=== PATIENT | female | born 1935 | race Caucasian/White ===

== ENCOUNTER 2021-01-19 15:27 | Emergency (ER) | payer MEDICARE, BC ==
--- NOTE | 2021-01-19 17:18 | EDM.PDOC ---
<Bc Mckeon - Last Filed: 01/19/21 17:13> ED HPI GENERAL MEDICAL PROBLEM - General Chief Complaint: Cardiovascular Problem Stated Complaint: HIGH BLOOD PRESSURE Time Seen by Provider: 01/19/21 17:05 Source of Information: Reports: Patient History Limitations: Reports: No Limitations - History of Present Illness INITIAL COMMENTS - FREE TEXT/NARRATIVE: 85 yo female was sent to the ER today by Dr. Harris for elevated BP. I asked Dr. Harris to send pertinent information from the clinic for our review, but none arrived. Patient does not know the names of her meds or dosages. She tells me she has had recent changes in her meds. She has not missed any doses of her prescribed meds to her knowledge. He has a mild frontal LUNDBERG and generally doesn't feel right. No SOB or CP or stroke sx's. 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: Other (see below) (none) - Related Data Allergies Allergy/AdvReac Type Severity Reaction Status Date / Time codeine Allergy Rash Verified 01/19/21 17:53 fosinopril [From Monopril] Allergy Cough Verified 01/19/21 17:53 Penicillins Allergy Cannot Verified 01/19/21 17:53 Remember Home Meds: Home Meds Cholecalciferol (Vitamin D3) [Vitamin D3] 1 tab PO DAILY 11/23/15 [History] Celecoxib [CeleBREX] 200 mg PO DAILY 01/19/21 [History] Furosemide [Lasix] 20 mg PO DAILY 01/19/21 [History] HCTZ/Triamterene [Maxzide 50-75 MG] 0.5 tab PO DAILY 01/19/21 [History] Levothyroxine [Synthroid] 100 mcg PO ACBREAKFAST 01/19/21 [History] Losartan [Cozaar] 100 mg PO DAILY 01/19/21 [History] amLODIPine [Norvasc] 5 mg PO DAILY #30 tab 01/19/21 [Rx] hydrALAZINE [Apresoline] 25 mg PO Q12HR #60 tab 01/19/21 [Rx] ED ROS GENERAL - Review of Systems Review Of Systems: See Below Constitutional: Reports: No Symptoms HEENT: Reports: No Symptoms Respiratory: Reports: No Symptoms Cardiovascular: Reports: Blood Pressure Problem Endocrine: Reports: No Symptoms GI/Abdominal: Reports: No Symptoms : Reports: No Symptoms Musculoskeletal: Reports: No Symptoms Skin: Reports: No Symptoms Neurological: Reports: Headache (mild, frontal) ED EXAM, GENERAL - Physical Exam Exam: See Below Exam Limited By: No Limitations General Appearance: Alert, WD/WN, No Apparent Distress Eye Exam: Bilateral Eye: Normal Inspection Ears: Normal External Exam, Normal Canal, Hearing Grossly Normal Ear Exam: Bilateral Ear: Auricle Normal, Canal Normal Nose: Normal Inspection, No Blood Throat/Mouth: Normal Inspection, Normal Lips, Normal Oropharynx, Normal Voice, No Airway Compromise Head: Atraumatic, Normocephalic Neck: Normal Inspection Respiratory/Chest: No Respiratory Distress, Lungs Clear, Normal Breath Sounds, No Accessory Muscle Use Cardiovascular: Regular Rate, Rhythm, No Edema GI/Abdominal: Soft, Non-Tender Extremities: Normal Inspection, Normal Range of Motion, Non-Tender, No Pedal Edema Neurological: Alert, Oriented, CN II-XII Intact, Normal Cognition, No Motor/Sensory Deficits Psychiatric: Normal Affect, Normal Mood Skin Exam: Warm, Dry, Intact, Normal Color, No Rash Departure - Departure Disposition: Home, Self-Care 01 Clinical Impression: Essential hypertension Prescriptions: hydrALAZINE [Apresoline] 25 mg PO Q12HR #60 tab amLODIPine [Norvasc] 5 mg PO DAILY #30 tab Instructions: Hypertension, Adult, [id number] Referrals: Mady Harris DO [Primary Care Provider] - Forms: ED Department Discharge Care Plan Goals: In addition to the your losartan, hydrochlorothiazide, and furosemide, I am adding to medications to help lower your blood pressure namely hydralazine 25 mg twice daily and amlodipine 5 mg daily. I had like you to follow-up with Dr. Harris in 1 week for a recheck of your blood pressure. <Eduardo Jimenez - Last Filed: 01/19/21 23:41> Course - Vital Signs Last Recorded V/S: Last Vital Signs Temp 36.8 C 01/19/21 17:14 Pulse 68 01/19/21 22:38 Resp 16 01/19/21 17:14 BP 166/67 H 01/19/21 22:38 Pulse Ox 99 01/19/21 17:57 - Orders/Labs/Meds Labs: Laboratory Tests 01/19/21 Range/Units 17:19 Sodium 133 L (140-148) mmol/L Potassium 4.3 (3.6-5.2) mmol/L Chloride 98 L (100-108) mmol/L Carbon Dioxide 29 (21-32) mmol/L Anion Gap 10.3 (5.0-14.0) mmol/L BUN 25 H (7-18) mg/dL Creatinine 0.9 (0.6-1.0) mg/dL Est Cr Clr Drug Dosing 34.83 mL/min Estimated GFR (MDRD) 59 L (>60) Glucose 99 (74-106) mg/dL Calcium 8.9 (8.5-10.1) mg/dL Troponin I < 0.017 (0.000-0.056) ng/mL Meds: Medications Discontinued Medications Generic Name Dose Route Start Last Admin Trade Name Freq PRN Reason Stop Dose Admin Amlodipine Besylate 10 mg 01/19/21 22:27 01/19/21 22:32 Amlodipine 5 Mg Tab PO 01/19/21 22:28 10 mg ONETIME ONE Administration Hydralazine HCl 10 mg 01/19/21 18:25 01/19/21 19:01 Hydralazine 10 Mg Tab PO 01/19/21 18:26 10 mg ONETIME STA Administration Hydralazine HCl 10 mg 01/19/21 20:45 01/19/21 20:51 Hydralazine 10 Mg Tab PO 01/19/21 20:46 10 mg ONETIME STA Administration Lorazepam 0.5 mg 01/19/21 21:20 01/19/21 21:25 Lorazepam 0.5 Mg Tab PO 01/19/21 21:21 0.5 mg ONETIME ONE Administration - Re-Assessments/Exams Free Text/Narrative Re-Assessment/Exam: 01/19/21 18:36 [Dr. Jimenez] I assumed care of the patient from Dr. Mckeon while awaiting the patient's labs to return. She has some mild hyponatremia with a sodium of 133 but otherwise are unremarkable. 01/19/21 19:30 We initiated antihypertension therapy with hydralazine 10 mg p.o. 01/19/21 21:00 patient has not had much improvement in her blood pressure still at 202/73. We will add an additional dose of hydralazine 10 mg to her regime. 01/19/21 22:15 patient is still quite hypertensive so I will add amlodipine 10 mg p.o. 01/19/21 23:15 patient's pressures are improving with the last being 170/73. I think this is a good start so we will prescribe hydralazine 25 mg twice daily and amlodipine 5 mg daily and have her review check with Dr. Harris next week for blood pressure. I am a little leery to add too many things too quickly and bottom her out. Does look like she is already on losartan, hydrochlorothiazide and furosemide. This time she is suitable for discharge home. Indications to return to the ED were discussed. Departure - Departure Time of Disposition: 23:40 Sepsis Event Note (ED) - Focused Exam Vital Signs: Vital Signs Temp Pulse Resp BP BP Pulse Ox 01/19/21 22:38 68 166/67 H 01/19/21 22:32 177/74 H 01/19/21 22:23 60 177/74 H 01/19/21 21:53 61 188/73 H 01/19/21 21:38 60 178/77 H 01/19/21 21:23 61 182/71 H 01/19/21 21:08 62 202/77 H 01/19/21 20:51 192/74 H 01/19/21 20:44 67 192/74 H 01/19/21 20:22 66 179/66 H 01/19/21 19:49 71 180/70 H 01/19/21 19:22 68 202/81 H 01/19/21 19:01 173/93 H 01/19/21 18:47 66 173/93 H 01/19/21 17:57 61 203/69 H 99 01/19/21 17:14 36.8 C 63 16 199/75 H 99 01/19/21 16:54 36.8 C 63 16 199/75 H 99 - Problem List & Annotations (1) Essential hypertension SNOMED Code(s): 09657887 Code(s): I10 - ESSENTIAL (PRIMARY) HYPERTENSION Status: Acute Priority: Medium Current Visit: Yes - Problem List Review Problem List Initiated/Reviewed/Updated: Yes
[2021-01-19] MEDS ORDERED: hydrALAZINE 10 MG Tab PO STA ×2 (18:25→20:45)
[2021-01-19] MEDS ORDERED: LORazepam 0.5 MG Tab PO ONE (21:20)
[2021-01-19] MEDS ORDERED: amLODIPine 5 MG Tab PO ONE (22:27)
[2021-01-19 22:48] VITALS: PULSE 68
[2021-01-19 23:40] VITALS: BP 175/62
== END 2021-01-19 23:52 | disposition home or self-care (01) ==
LOC: JP.ED 15:27
DX: I10 Essential (primary) hypertension (principal); Z88.0 Allergy status to penicillin; Z88.5 Allergy status to narcotic agent; Z88.8 Allergy status to other drugs, medicaments and biological substances
CPT/HCPCS: 36415; 80048; 84484; 99283; A9270